=== PATIENT | female | born 1935 | race Two or more races ===

== ENCOUNTER 2018-03-11 07:24 | Inpatient (IN) | payer MEDICAID, MEDICARE ==
[~2018-03-11] VITALS: Ht 157.5 cm; Wt 72.6 kg
[2018-03-11] MEDS ORDERED: BUPIVACAINE 0.75% DEXT-PF 2 ML AMPUL ONE (09:15)
[2018-03-11] MEDS ORDERED: BACITRACIN 50000 UNITS/VIAL ONE (09:15)
[2018-03-11] MEDS ORDERED: FENTANYL PF 100MCG/2ML AMPUL ONE (09:16)
[2018-03-11] MEDS ORDERED: BUPIVACAINE 0.5 % PF 150 MG/30 ML VIAL ONE ×2 (10:26→11:44)
[2018-03-11] MEDS ORDERED: TRANEXAMIC ACID 3,000 MG in SODIUM CHLORIDE IRRIG SOLUTION 70 ML IR ONE (10:30)
[2018-03-11] MEDS ORDERED: ZOLPIDEM TARTRATE 5 MG TABLET PO PRN (13:30)
[2018-03-11] MEDS ORDERED: MAG HYDROX/AL HYDROX/SIMETH 30 ML UDC PO PRN (13:30)
[2018-03-11] MEDS ORDERED: diphenhydrAMINE HCL 25 MG CAPSULE PO PRN (13:30)
[2018-03-11] MEDS ORDERED: CLONIDINE HCL 0.1 MG TABLET PO PRN (13:30)
[2018-03-11] MEDS ORDERED: NALOXONE HCL 0.4 MG/ML AMPUL IV PRN (13:30)
[2018-03-11] MEDS ORDERED: BACLOFEN (10 MG) 10 MG TABLET PO PRN (13:30)
[2018-03-11] MEDS ORDERED: HYDROCODONE/APAP 10/325MG 1 EA TABLET PO PRN (13:30)
[2018-03-11] MEDS ORDERED: BISACODYL SUPP (10 MG) 10 MG/SUPP.RECT SUPP.RECT RC PRN ×2 (13:30→14:00)
[2018-03-11] MEDS ORDERED: MAGNESIUM HYDROXIDE 30 ML UDC PO PRN (13:30)
[2018-03-11] MEDS ORDERED: MENTHOL/CETYLPYRD (CEPACOL) 1 LOZ LOZENGE PO PRN (13:30)
--- NOTE | 2018-03-11 13:30 | NUR ---
MSRN. PT RECEIVED A&0X3, GE[place]GIAN SPEAK WITH FAMILY AT BEDSIDE. PT WITH O2 VIA NC AT 2LPM AND REPORTS MINOR SOB, PT DENIES PAIN AT THIS TIME. PT CMS INTAKE. PT WITH MONTOYA INTACT AND OPERATIONAL WITH LITE YELLOW URINE IN COLLECTION. ICE PACK APPLIED. ORDERS REVIEWED AND PLACED. IVF FLUIDS TO BE D/C WHEN WITH PO INTAKE, PT ALREADY DRINKING AND EATING, NO FLUIDS STARTED. PT IVC A L HAND INTACT AND OPERATIONAL AND SALINE FLUSH PATENT. PT BREIFED ON TODAY'S POC AND IS WITHOUT CONCERN OR COMPLAINT.
--- NOTE | 2018-03-11 14:30 | NUR ---
PT SEEN BY PT AND CPM IN PLACE.
[2018-03-11] MEDS: ASPIRIN 325 MG TABLET PO SCH ×2 (15:30→18:26)
--- NOTE | 2018-03-11 15:30 | NUR ---
MSRN PT REPORTING 8-9/10 PAIN. CPM REMOVED, PRN ANALGESIA AND ZOFRAN ADMINISTERED.
[2018-03-11] MEDS: ONDANSETRON HCL/PF 4 MG/2 ML VIAL IV PRN (15:31)
[2018-03-11] MEDS: HYDROMORPHONE INJ 2 MG/ML DISP.SYRIN SQ PRN (15:31)
[2018-03-11 16:00] VITALS: BP 152/82
--- NOTE | 2018-03-11 16:50 | NUR ---
MSLOUISE NOTES. PT STILL REPORTING NAUSEA, NO PAIN. MD BUCHANAN REQUESTING REGLAN, WILL ADMIN.
[2018-03-11] MEDS ORDERED: METOCLOPRAMIDE HCL 10 MG/2 ML VIAL IV PRN (17:00)
--- NOTE | 2018-03-11 17:20 | NUR ---
MSRN PT WITH N&V BUT STILL DRINKING SOUP. PT ENCOURAGED TO WAIT UNTIL N&V RESOLVED.
[2018-03-11] MEDS: ANCEF 1 GM/50 ML D5W IV SCH ×2 (18:18)
[2018-03-11] MEDS: DOCUSATE SODIUM 100 MG CAPSULE PO SCH (18:26)
--- NOTE | 2018-03-11 18:35 | NUR ---
MSRN. PT RECEIVED A&0X3, ARMENIAN SPEAKING WITH FAMILY AT BEDSIDE. PT WITH O2 VIA NC AT 2LPM , PT DENIES PAIN AT THIS TIME. PT CMS REMAINS INTAKE. PT WITH MONTOYA INTACT AND OPERATIONAL WITH 300CC LITE YELLOW URINE IN COLLECTION. ICE PACKS IN SITU, DRESSING CLEAN AND INTACT. PT IVC A L HAND INTACT AND OPERATIONAL WITH IVAB AT THIS TIME. PT NAUSEA RESOLVED RT REGLAN ADMIN. PT BED IN LOWEST LOCKED POSITION, CALL STEWART WITHIN REACH, ALL DAY NURSE DUTIES ATTENDED AND PT WITHOUT CONCERN OR COMPLAINT AT THIS TIME. WILL ENDORSE TO NIGHT NURSE.
--- NOTE | 2018-03-11 19:30 | NUR ---
MS RN OPENING NOTES PT WAS RECEIVED SLEEPING IN BED IN SEMI-FOWLERS AT THE LOWEST AND LOCKED POSITION WITH SIDE RAILS UP X2, FAMILY PRESENT AT THE BEDSIDE, A/O X3, [place] SPEAKING ONLY, NO S/S OF DISTRESS OR PAIN CURRENTLY NOTED, BREATHING IS EVEN AND UNLABORED ON 2L VIA NC, PT IS S/P TKR OF THE RIGHT KNEE, DRESSING IS CURRENTLY CLEAN AND INTACT, HAS MONTOYA IN PLACE THAT IS DRAINING YELLOW COLORED URINE, SAFETY PRECAUTIONS IN PLACE, CALL LIGHT WITHIN REACH, WILL CONTINUE TO MONITOR
[2018-03-11 20:06] VITALS: BP 107/54
[2018-03-11] MEDS: PANTOPRAZOLE 40 MG TABLET.DR PO SCH (21:48)
[2018-03-12] MEDS: IV D5/0.45 NACL 1,000 ML IV PRN ×2 (00:18→06:33)
[2018-03-12] MEDS: ANCEF 1 GM/50 ML D5W IV SCH ×2 (01:15)
[2018-03-12 06:30] LABS: CARBON DIOXIDE 26 mmol/L (21-32); CHLORIDE 106 mmol/L (98-107); GLUCOSE 165 mg/dL (74-106); MAGNESIUM 1.3 mg/dL (1.8-2.4); PHOSPHORUS 3.3 mg/dL (2.5-4.9); POTASSIUM 3.9 mmol/L (3.5-5.1); SODIUM SERUM 140 mmol/L (136-145); UREA NITROGEN, BLOOD 23 mg/dL (7-18)
--- NOTE | 2018-03-12 06:47 | NUR ---
MS RN CLOSING NOTES PT SLEEPING IN BED IN SEMI-FOWLERS AT THE LOWEST AND LOCKED POSITION WITH SIDE RAILS UP X2, FAMILY PRESENT AT THE BEDSIDE, A/O X3, GAMBIAN SPEAKING ONLY, NO S/S OF DISTRESS OR PAIN THROUGHOUT THE NIGHT, BREATHING EVEN AND UNLABORED, PT IS S/P TKR OF THE RIGHT KNEE, DRESSING IS CURRENTLY CLEAN AND INTACT, HAS MONTOYA IN PLACE THAT IS DRAINING YELLOW COLORED URINE AND 400ML, LEFT HAND #18 IV IS PATENT AND INTACT JUST RECENTLY TO A NEW BAG, SAFETY PRECAUTIONS IN PLACE, CALL LIGHT WITHIN REACH, ALL NEEDS ATTENDED TO, WILL ENDORSE TO DAY SHIFT NURSE FOR CONTINUITY OF CARE
[2018-03-12 06:50] LABS: EOSINOPHILS % (AUTO) 0.2 % (0.0-6.0); HEMATOCRIT 29 % (33-45); HEMOGLOBIN 9.9 g/dL (11.5-14.8); LYMPHOCYTES # (AUTO) 1.3 /CMM (0.8-4.8); LYMPHOCYTES % (AUTO) 16.3 % (20.0-44.0); MEAN CORPUSCULAR HGB CONC 34 g/dl (31.0-36.0); MEAN CORPUSCULAR VOLUME 95 fL (82-100); MONOCYTES # (AUTO) 0.7 /CMM (0.1-1.30); MONOCYTES % (AUTO) 8.5 % (2.0-12.0); NEUTROPHILS # (AUTO) 5.7 /CMM (1.8-8.9); PLATELET COUNT (AUTO) 199 /CMM (150-450); RDW COEFFICIENT OF VARIATION 13.3 (11.5-15.0); RED BLOOD CELL COUNT(AUTO) 3.06 MIL/uL (4.0-5.2); WHITE BLOOD COUNT (AUTO) 7.7 K/uL (4.3-11.0)
--- NOTE | 2018-03-12 07:30 | NUR ---
RN OPENING NOTES RECEIVED PATIENT AWAKE ALERT AND VERBALLY RESPONSIVE, [place] SPEAKING, ABLE TO MAKE NEEDS KNOWN. RESPIRATIONS EVEN AND UNLABORED, DENIES ANY PAIN OR DISCOMFORT AT THIS TIME. IV ACCESS TO LEFT HAND PATENT AND INTACT, NO REDNESS OR INFILTRATION NOTED. REMAINS AFEBRILE, SAFETY MEASURES IN PLACE, KEPT CLEAN DRY AND COMFORTABLE, CALL LIGHT WITHIN EASY REACH, WILL CONTINUE TO MONITOR
[2018-03-12] MEDS ORDERED: PANT40TA4 PO (07:52)
[2018-03-12] MEDS ORDERED: DOCU100C36 PO (07:52)
[2018-03-12] MEDS ORDERED: LEVO100T9 PO (07:52)
[2018-03-12] MEDS ORDERED: ASPI-1152 PO (07:52)
[2018-03-12] MEDS ORDERED: BACL10TA PO (07:52)
[2018-03-12] MEDS ORDERED: BENA20TA9 PO (07:52)
[2018-03-12] MEDS ORDERED: CHOL200026 PO (07:52)
[2018-03-12] MEDS ORDERED: ATOR10TA PO (07:52)
[2018-03-12 08:00] VITALS: BP 131/52
[2018-03-12] MEDS: ASPIRIN 325 MG TABLET PO SCH ×2 (08:37→16:45)
[2018-03-12] MEDS: DOCUSATE SODIUM 100 MG CAPSULE PO SCH ×2 (08:37→16:45)
[2018-03-12] MEDS: HYDROMORPHONE INJ 2 MG/ML DISP.SYRIN SQ PRN (09:25)
[2018-03-12] MEDS: ONDANSETRON HCL/PF 4 MG/2 ML VIAL IV PRN ×2 (09:26→15:07)
--- NOTE | 2018-03-12 10:30 | NUR ---
RN NOTES LET SUPERVISOR CYTOLOGY KNOW ABOUT MED RECON, WILL CONTINUE TO FOLLOW UP
[2018-03-12] MEDS: Magnesium 1GM/D5W 100ML PREMIX 100 ML IV SCH ×4 (12:49→18:06)
[2018-03-12 16:00] VITALS: BP 168/68
--- NOTE | 2018-03-12 18:45 | NUR ---
RN NOTES MONTOYA CATHETER REMOVED ORDERED, WITH NO ASE NOTED, WILL CONTINUE TO MONITOR FOR URINARY RETENTION
--- NOTE | 2018-03-12 19:29 | NUR ---
RN CLOSING NOTES PATIENT AWAKE ALERT AND VERBALLY RESPONSIVE, CITIZEN OF [place] SPEAKING, ABLE TO MAKE NEEDS KNOWN. RESPIRATIONS EVEN AND UNLABORED, DENIES ANY PAIN OR DISCOMFORT AT THIS TIME. IV ACCESS TO RIGHT HAND PATENT AND INTACT, NO REDNESS OR INFILTRATION NOTED. REMAINS AFEBRILE, SAFETY MEASURES IN PLACE, KEPT CLEAN DRY AND COMFORTABLE, CALL LIGHT WITHIN EASY REACH, ENDORSED TO NEXT SHIFT FOR CONTINUITY OF CARE
--- NOTE | 2018-03-12 19:31 | NUR ---
RN OPENING NOTES RECEIVED REPORT FROM DAYSHIFT LOUISE WHITE. FOUND Pt ASLEEP IN BED. RESPIRATIONS EVEN AND UNLABORED, EASILY AWAKENED. DAUGHTER AT BEDSIDE. Pt IS A/OX3, WELSH SPEAKING, IS VERBAL, AND ABLE TO MAKE NEEDS KNOWN. NO S/S OF ACUTE DISTRESS OR SOB NOTED. IV ACCESS ON R HAND #22G. IVF D51/2NS @125ML/HR. SAFETY MEASURES IN PLACE. BED LOW, LOCKED, HOB ELEVATED, SIDE RAILS UP, CALL LIGHT AND BEDSIDE TABLE WITHIN REACH. WILL CONTINUE TO MONITOR Pt THROUGHOUT THE NIGHT FOR SAFETY.
[2018-03-12 20:00] VITALS: BP 121/66
[2018-03-12] MEDS: PANTOPRAZOLE 40 MG TABLET.DR PO SCH (21:13)
[2018-03-13] MEDS: MORPHINE SULFATE INJ 4 MG/ML DISP.SYRIN IM PRN ×3 (03:26→14:50)
--- NOTE | 2018-03-13 03:30 | NUR ---
RN NOTES Pt C/O 03/27 PAIN ON RT KNEE REQUESTING PAIN MED. ADMINISTERED MORPHINE 3MG IM ON RT DELTOID.
--- NOTE | 2018-03-13 06:40 | NUR ---
RN CLOSING NOTES NO SIGNIFICANT CHANGES IN Pt's CONDITION. NO S/S OF ACUTE DISTRESS OR SOB NOTED DURING THE NIGHT. RESPIRATIONS EVEN AND UNLABORED. ALL NEEDS MET AND ATTENDED TO. SAFETY MEASURES IN PLACE. BED LOW, LOCKED, HOB ELEVATED, SIDE RAILS UP, & CALL LIGHT WITHIN REACH. WILL ENDORSE TO DAYSHIFT RN FOR Pt's MARIO.
[2018-03-13 07:03] LABS: CALCIUM, SERUM 7.8 mg/dL (8.5-10.1); CARBON DIOXIDE 27 mmol/L (21-32); CHLORIDE 103 mmol/L (98-107); CREATININE 0.9 mg/dL (0.6-1.3); GLUCOSE 169 mg/dL (74-106); MAGNESIUM 2.2 mg/dL (1.8-2.4); POTASSIUM 3.6 mmol/L (3.5-5.1); SODIUM SERUM 138 mmol/L (136-145); UREA NITROGEN, BLOOD 14 mg/dL (7-18)
--- NOTE | 2018-03-13 07:30 | NUR ---
RN OPENING NOTES RECEIVED PATIENT AWAKE ALERT AND VERBALLY RESPONSIVE, KENY[place] SPEAKING, ABLE TO MAKE NEEDS KNOWN. RESPIRATIONS EVEN AND UNLABORED, DENIES ANY PAIN OR DISCOMFORT AT THIS TIME. IV ACCESS TO RIGHT HAND PATENT AND INTACT, NO REDNESS OR INFILTRATION NOTED. REMAINS AFEBRILE, SAFETY MEASURES IN PLACE, KEPT CLEAN DRY AND COMFORTABLE, CALL LIGHT WITHIN EASY REACH, WILL CONTINUE TO MONITOR
[2018-03-13 08:00] VITALS: BP 143/74
[2018-03-13] MEDS: DOCUSATE SODIUM 100 MG CAPSULE PO SCH ×2 (08:22→17:05)
[2018-03-13] MEDS: ASPIRIN 325 MG TABLET PO SCH ×2 (08:22→17:05)
[2018-03-13] MEDS: MECLIZINE HCL 25 MG TABLET PO SCH (08:22)
--- NOTE | 2018-03-13 10:30 | NUR ---
RN NOTES PT SEEN BY PHYSICAL THERAPY WILL CONTINUE TO MONITOR
[2018-03-13] MEDS: ONDANSETRON HCL/PF 4 MG/2 ML VIAL IV PRN (14:50)
[2018-03-13 16:00] VITALS: BP 143/68
--- NOTE | 2018-03-13 19:30 | NUR ---
RN CLOSING NOTES PATIENT AWAKE ALERT AND VERBALLY RESPONSIVE, [place] SPEAKING, ABLE TO MAKE NEEDS KNOWN. RESPIRATIONS EVEN AND UNLABORED, DENIES ANY PAIN OR DISCOMFORT AT THIS TIME. IV ACCESS TO RIGHT HAND PATENT AND INTACT, NO REDNESS OR INFILTRATION NOTED. REMAINS AFEBRILE, SAFETY MEASURES IN PLACE, KEPT CLEAN DRY AND COMFORTABLE, CALL LIGHT WITHIN EASY REACH, WILL CONTINUE TO MONITOR
--- NOTE | 2018-03-13 19:30 | NUR ---
MS RN NOTES RECEIVED PT IN BED, ASLEEP AT THIS TIME, AROUSES EASILY, A/O X 3, VERBALLY RESPONSIVE. DAUGHTER AT BEDSIDE. NO ACUTE DISTRESS NOR SOB AT THIS TIME. IV SITE ON RIGHT HAND INTACT AND PATENT, NO S/S OF INFILTRATION NOTED. RIGHT KNEE SURGICAL SITE, WITH CLEAN AND INTACT DRESSING. NO BLEEDING NOTED AT THIS TIME. DENIES ANY PAIN OR DISCOMFORT AT THSI TIME. ALL NEEDS ATTENDED AND MET. COMFORTABLE VERBALIZED. SAFETY PRECAUTIONS OBSERVED. WILL CONTINUE TO MONITOR.
[2018-03-13 20:00] VITALS: BP 132/68
--- NOTE | 2018-03-13 20:20 | NUR ---
SPOKE WITH DR. THOMPSON ON THE PHONE AND INFORMED REGARDING MED RECON, NEEDS TO BE REVIEWED. WILL ENDORSE TO NEXT SHIFT ACCORDINGLY.
[2018-03-13] MEDS: PANTOPRAZOLE 40 MG TABLET.DR PO SCH (21:37)
--- NOTE | 2018-03-13 23:53 | NUR ---
placed a call to lab and spoke with cedric, confirmed that they have the specimen for MRSA nares.
[2018-03-14] MEDS: MORPHINE SULFATE INJ 4 MG/ML DISP.SYRIN IM PRN ×2 (02:27→09:41)
--- NOTE | 2018-03-14 06:38 | NUR ---
MS RN NOTES PT IN BED, ASLEEP AT THIS TIME, AROUSES EASILY, A/O X 3, VERBALLY RESPONSIVE. NO ACUTE DISTRESS NOR SOB AT THIS TIME. IV SITE ON RIGHT HAND INTACT AND PATENT, NO S/S OF INFILTRATION NOTED. RIGHT KNEE SURGICAL SITE, WITH CLEAN AND INTACT DRESSING. NO BLEEDING NOTED AT THIS TIME. DENIES ANY PAIN OR DISCOMFORT AT THIS TIME. ALL NEEDS ATTENDED AND MET. COMFORTABLE VERBALIZED. SAFETY PRECAUTIONS OBSERVED. WILL ENDORSE TO NEXT SHIFT FOR MARIO.
--- NOTE | 2018-03-14 07:05 | NUR ---
MS RN NOTES PATIENT LYING IN BED, HOB, ALERT ORIENTED X 4. NO ACUTE DISTRESS NOTED. NO SOB NOTED. BREATHING UNLABORED.IVF ACCESS PATENT AND INTACT, NO REDNESS OR SWELLING NOTED. SAFETY MEASURES IN PLACE. CALL LIGHT WITHIN REACH. WILL CONTINUE TO MONITOR ACCORDINGLY.
[2018-03-14 08:00] VITALS: BP 144/70
[2018-03-14] MEDS: ASPIRIN 325 MG TABLET PO SCH ×2 (08:51→17:51)
[2018-03-14] MEDS: DOCUSATE SODIUM 100 MG CAPSULE PO SCH ×2 (08:51→17:51)
[2018-03-14] MEDS: MECLIZINE HCL 25 MG TABLET PO SCH (08:51)
[2018-03-14] MEDS ORDERED: ASPI-992 PO (13:26)
--- NOTE | 2018-03-14 15:40 | NUR ---
MS RN NOTES RECEIVE CALL FROM [facility] AWARE OF RIGHT KNEE XRAY, SAID PATIENT MAY DO PT WITH IMMOBILIZER ON RIGHT KNEE DURING AMBULATION WITH FWB. PT AWARE.
[2018-03-14 16:00] VITALS: BP 110/61
--- NOTE | 2018-03-14 18:43 | NUR ---
MS RN NOTES PATIENT LYING IN BED ALERT ORIENTED X 4, FAMILY AT BEDSIDE. NO ACUTE DISTRESS NOTED. NO SOB NOTED.DENIED ANY PAIN AT THIS TIME. BREATHING UNLABORED.IVF ACCESS PATENT AND INTACT, NO REDNESS OR SWELLING NOTED. DUE MEDICATIONS GIVEN, NO ASE NOTED. NEEDS ATTENDED AND ANTICIPATED. SAFETY MEASURES IN PLACE. CALL LIGHT WITHIN REACH. WILL CONTINUE TO MONITOR ACCORDINGLY.WILL ENDORSE TO NIGHT NURSE FOR CONTINUITY OF CARE.
--- NOTE | 2018-03-14 19:20 | NUR ---
MS RN NOTES RECEIVED PT IN BED, AWAKE, A/O X 3, VERBALLY RESPONSIVE. FAMILY AT BEDSIDE. NO ACUTE DISTRESS NOR SOB AT THIS TIME. IV SITE ON RIGHT HAND INTACT AND PATENT, NO S/S OF INFILTRATION NOTED. RIGHT KNEE SURGICAL SITE, WITH CLEAN AND INTACT DRESSING. NO BLEEDING NOTED AT THIS TIME. CPM MACHINE, APPLIED WITH LOUISE MORALES, LISA AYERS, CPM MACHINE STARTED. PT DENIES ANY PAIN OR DISCOMFORT AT THIS TIME. ALL NEEDS ATTENDED AND MET. COMFORTABLE VERBALIZED. SAFETY PRECAUTIONS OBSERVED. CALL LIGHT WITHIN REACH. WILL CONTINUE TO MONITOR.
[2018-03-14 20:00] VITALS: BP 151/67
--- NOTE | 2018-03-14 20:15 | NUR ---
CPM MACHINE STOPPED AT THIS TIME, PT WANTED TO URINATE.
--- NOTE | 2018-03-14 20:30 | NUR ---
CPM MACHINE APPLIED. PT TOLERATING WELL. DENIES ANY DISCOMFORT AT THIS TIME.
[2018-03-14] MEDS: PANTOPRAZOLE 40 MG TABLET.DR PO SCH (21:14)
--- NOTE | 2018-03-14 22:00 | NUR ---
CPM REMOVED AT THIS TIME WITH LISA ABAD AND PAULETTE BRAVO. PT WANTED TO URINATE.
--- NOTE | 2018-03-14 22:10 | NUR ---
CPM APPLIED TO THE PT, WITH HELP OF AIR QUALITY INSTRUMENT SPECIALIST ANS DTR AT BEDSIDE.
--- NOTE | 2018-03-14 23:15 | NUR ---
PT REQUESTED TO REMOVE CPM MACHINE, PT WANTED TO REST ALREADY. PER DTR SHELLY PT ALSO HAD CPM DURING THE DAY TIME, FOR ALMOST AN HOUR. EDUCATED REGARDING USE OF CPM MACHINE, VERBALIZED UNDERSTANDING.
--- NOTE | 2018-03-15 03:10 | NUR ---
PT ASLEEP AT THIS TIME, APPEARS COMFORTABLE. DTR AT BEDSIDE. AROUSES EASILY. NO DISTRESS , NO SOB NOTED. RESPIRATION IS EVEN AND UNLABORED. NO C/O PAIN OR DISCOMFORT AT THIS TIME. SAFETY PRECAUTIONS OBSERVED. CALL LIGHT WITHIN REACH WILL CONT TO MONITOR.
--- NOTE | 2018-03-15 06:40 | NUR ---
MS RN NOTES PT IN BED, RESTING IN BED, AROUSES EASILY. A/O X 3, VERBALLY RESPONSIVE. FAMILY AT BEDSIDE. NO ACUTE DISTRESS NOR SOB AT THIS TIME. IV SITE ON RIGHT HAND INTACT AND PATENT, NO S/S OF INFILTRATION NOTED. RIGHT KNEE SURGICAL SITE, WITH CLEAN AND INTACT DRESSING. NO BLEEDING NOTED AT THIS TIME. PT DENIES ANY PAIN OR DISCOMFORT AT THIS TIME. ALL NEEDS ATTENDED AND MET. COMFORTABLE VERBALIZED. SAFETY PRECAUTIONS OBSERVED. CALL LIGHT WITHIN REACH. WILL ENDORSE TO NEXT SHIFT FOR MARIO.
[2018-03-15 06:51] LABS: CALCIUM, SERUM 8.2 mg/dL (8.5-10.1); CARBON DIOXIDE 32 mmol/L (21-32); CREATININE 0.8 mg/dL (0.6-1.3); GLUCOSE 112 mg/dL (74-106); MAGNESIUM 1.9 mg/dL (1.8-2.4); PHOSPHORUS 2.3 mg/dL (2.5-4.9); UREA NITROGEN, BLOOD 14 mg/dL (7-18)
[2018-03-15 07:03] LABS: CHLORIDE 103 mmol/L (98-107); POTASSIUM 3.8 mmol/L (3.5-5.1); SODIUM SERUM 139 mmol/L (136-145)
--- NOTE | 2018-03-15 07:07 | NUR ---
MS RN NOTES PATIENT LYING IN BED ALERT ORIENTED X 4, FAMILY AT BEDSIDE. NO ACUTE DISTRESS NOTED. NO SOB NOTED. BREATHING UNLABORED.IV ACCESS PATENT AND INTACT, NO REDNESS OR SWELLING NOTED. SAFETY MEASURES IN PLACE. CALL LIGHT WITHIN REACH. WILL CONTINUE TO MONITOR ACCORDINGLY.
[2018-03-15 08:00] VITALS: BP 142/62
[2018-03-15 08:04] LABS: HEMATOCRIT 27 % (33-45); HEMOGLOBIN 9.4 g/dL (11.5-14.8); LYMPHOCYTES % (AUTO) 17.1 % (20.0-44.0); MEAN CORPUSCULAR HGB CONC 34 g/dl (31.0-36.0); MEAN CORPUSCULAR VOLUME 95 fL (82-100); NEUTROPHILS % (AUTO) 74.1 % (43.0-81.0); PLATELET COUNT (AUTO) 191 /CMM (150-450); RDW COEFFICIENT OF VARIATION 13.7 (11.5-15.0); RED BLOOD CELL COUNT(AUTO) 2.89 MIL/uL (4.0-5.2); WHITE BLOOD COUNT (AUTO) 6.7 K/uL (4.3-11.0)
[2018-03-15 08:05] LABS: BASOPHILS % (AUTO) 0.4 % (0.0-2.0); EOSINOPHILS % (AUTO) 1.7 % (0.0-6.0); LYMPHOCYTES # (AUTO) 1.1 /CMM (0.8-4.8); MONOCYTES # (AUTO) 0.4 /CMM (0.1-1.30); MONOCYTES % (AUTO) 6.7 % (2.0-12.0)
[2018-03-15] MEDS: DOCUSATE SODIUM 100 MG CAPSULE PO SCH ×2 (08:29→16:50)
[2018-03-15] MEDS: ASPIRIN 325 MG TABLET PO SCH ×2 (08:29→16:50)
[2018-03-15] MEDS: MECLIZINE HCL 25 MG TABLET PO SCH (08:29)
[2018-03-15] MEDS: ACETAMINOPHEN W/ CODEINE#3 1 EA TABLET PO PRN ×2 (10:12→14:44)
--- NOTE | 2018-03-15 10:22 | NUR ---
MS RN NOTES SEEN AND EVALUATED BY DR MARTITA BUTT WITH NEW ORDERS MADE. NOTED AND CARRIED OUT.
[2018-03-15] MEDS ORDERED: K PHOS NEUTRAL 250 MG TABLET PO ONE ×2 (14:00→15:30)
[2018-03-15 16:06] VITALS: BP 141/64
--- NOTE | 2018-03-15 18:30 | NUR ---
MS FARM FIELD MANAGER NOTES PATIENT DISCHARGED HOME WITH STABLE VITAL SIGNS WITH [facility]. NO ACUTE DISTRESS NOTED. BREATHING UNLABORED. NO SOB NOTED. DENIED ANY PAIN AT THIS TIME. DISCHARGE INSTRUCTIONS GIVEN TO THE PATIENT AND DAUGHTER INCLUDING FOLLOW UP APPOINTMENT AND NEW PRESCRIPTION, VERBALIZED UNDERSTANDING. ALL BELONGINGS ACCOUNTED FOR. RIGHT KNEE SURGERY DRESSING CLEAN AND INTACT, NO S/SX OF INFECTION AROUND THE AREA. DRESSING CHANGE WILL BE DONE BY ORTHOPEDIC DOCTOR. NEEDS ATTENDED AND ANTICIPATED. DUE MEDICATIONS GIVEN, NO ASE NOTED. IV ACCESS REMOVED, NO REDNESS , NO SWELLING , NO BLEEDING NOTED.DISCHARGED WITH RIGHT KNEE IMMOBILIZER. WHEELED TO THE LOBBY, ASSISTED TO A PRIVATE CAR PICKED UP BY DAUGHTER IN STABLE CONDITION.
== END 2018-03-15 18:47 | disposition home health service (06) | DRG 302 ==
LOC: DS 07:24 → MED 13:02
PROVIDERS: ADMIT Specialist; ATTEND Internal Medicine
PROC: 0SRC0J9 Replacement of Right Knee Joint with Synthetic Substitute, Cemented, Open Approach (ICD-10-PCS; principal; 2018-03-11 09:30)
DX: M17.11 Unilateral primary osteoarthritis, right knee (principal); N17.0 Acute kidney failure with tubular necrosis; I11.0 Hypertensive heart disease with heart failure; I50.9 Heart failure, unspecified; E83.42 Hypomagnesemia; E78.5 Hyperlipidemia, unspecified; K21.9 Gastro-esophageal reflux disease without esophagitis; E03.9 Hypothyroidism, unspecified; R42 Dizziness and giddiness; D64.9 Anemia, unspecified
CPT/HCPCS: 36415; 73560-TC; 80048-TC; 83735-TC; 84100-TC; 85025-TC; 86850-TC; 86921-TC; 87081-TC; 88305-TC; 88311-TC; 93307-TC; 97112-TC; 97116-TC; 97530-TC; 97760-TC; A4217; A6402; C1713; C1769; J0690; J1170; J2270; J2405; J2765; J3010; J3475; J3490; J7050; J7060; J8597; L1830